=== PATIENT | male | born 1995 | race Caucasian/White ===

== ENCOUNTER 2019-06-21 22:48 | Emergency (ER) | payer BC ==
--- NOTE | 2019-06-22 00:31 | RADIOLOGY REPORT (SQ) ---
Left knee two view on 06/22/2019 at 12:12 AM CLINICAL INDICATION: Lateral knee pain after fall COMPARISON: None FINDINGS: No joint effusion is noted. There are no fractures. Visualized joints are well aligned. No bony abnormality is noted. IMPRESSION: No acute abnormality.
--- NOTE | 2019-06-22 03:22 | ER Document Report ---
ED Fall - General Chief Complaint: Fall Stated Complaint: FALL,LEFT KNEE PAIN Time Seen by Provider: 06/22/19 02:46 Mode of Arrival: Ambulatory Information source: Patient TRAVEL OUTSIDE OF THE [place] IN LAST 30 DAYS: No - HPI Notes: Patient states that he hit his knee on a trailer approximate 3 days ago. It was the left knee. He states he continues to have pain intermittently in the left knee so he felt he should come to the emergency department for evaluation. He does not know of anything that makes the pain better or worse. The pain does occur randomly. He states it is moderate when it comes and lasts several minutes at a time. It does radiate down the left leg. He denies any previous injuries to this leg. He denies any other injuries 3 days ago. The pain is sharp. - Related data Allergies/Adverse Reactions: No Known Allergies Allergy (Verified 11/13/13 00:24) Past Medical History - General Information source: Patient - Social History Smoking Status: Current Every Day Smoker Chew tobacco use (# tins/day): Yes Frequency of alcohol use: None Drug Abuse: None Family History: None Patient has suicidal ideation: No Patient has homicidal ideation: No GI Medical History: Reports: Hx Gastritis Psychiatric Medical History: Reports: Hx Anxiety - Immunizations Immunizations up to date: Yes Hx Diphtheria, Pertussis, Tetanus Vaccination: Yes Review of Systems - Review of Systems Constitutional: denies: Chills, Fever Cardiovascular: denies: Chest pain, Palpitations Respiratory: denies: Cough, Short of breath -: Yes All other systems reviewed and negative Physical Exam - Vital signs Vitals: Temp Pulse Resp BP Pulse Ox 98.5 F 78 16 158/87 H 97 06/21/19 22:54 06/21/19 22:54 06/21/19 22:54 06/21/19 22:54 06/21/19 22:54 Interpretation: Hypertensive - General General appearance: Appears well, Alert - HEENT Head: Normocephalic, Atraumatic Eyes: Normal Pupils: PERRL - Respiratory Respiratory status: No respiratory distress Chest status: Nontender Breath sounds: Normal Chest palpation: Normal - Cardiovascular Rhythm: Regular Heart sounds: Normal auscultation Murmur: No - Abdominal Inspection: Normal Distension: No distension Bowel sounds: Normal Tenderness: Nontender Organomegaly: No organomegaly - Back Back: Normal, Nontender - Extremities General upper extremity: Normal inspection, Nontender, Normal color, Normal ROM, Normal temperature General lower extremity: Normal inspection, Tender - Patient is tender on the lateral aspect of the left knee joint. This tenderness is just distal to the midline of the joint., Normal color, Normal ROM, Normal temperature, Normal weight bearing. No: Nubia's sign - Neurological Neuro grossly intact: Yes Cognition: Normal Orientation: AAOx4 [place] Coma Scale Eye Opening: Spontaneous [place] Coma Scale Verbal: Oriented [place] Coma Scale Motor: Obeys Commands [place] Coma Scale Total: 15 Speech: Normal Motor strength normal: LUE, RUE, LLE, RLE Sensory: Normal - Psychological Associated symptoms: Normal affect, Normal mood - Skin Skin Temperature: Warm Skin Moisture: Dry Skin Color: Normal Course - Vital Signs Vital signs: Temp Pulse Resp BP Pulse Ox 98.5 F 78 16 158/87 H 97 06/21/19 22:54 06/21/19 22:54 06/21/19 22:54 06/21/19 22:54 06/21/19 22:54 - Diagnostic Test Radiology reviewed: Image reviewed, Reports reviewed Discharge - Discharge Clinical Impression: Sprain of unspecified site of left knee, initial encounter Condition: Stable Disposition: HOME, SELF-CARE Instructions: Ice & Elevation ([facility]), Sprained Knee ([facility]) Additional Instructions: Please call Dr. Mccann as soon as possible to arrange follow-up Prescriptions: Tramadol HCl [Ultram] 50 mg PO Q6 PRN 3 Days #12 tablet PRN Reason: Forms: Return to Work Referrals: SONNY MCCANN JR, [ACTIVE PROVISIONAL STAFF] - Follow up in 1 week
[2019-06-22 03:43] VITALS: BP 144/81
== END 2019-06-22 03:41 | disposition home or self-care (01) ==
LOC: ER 22:48
DX: S83.92XA Sprain of unspecified site of left knee, initial encounter (principal); M25.562 Pain in left knee; M79.605 Pain in left leg; W19.XXXA Unspecified fall, initial encounter; F17.200 Nicotine dependence, unspecified, uncomplicated
CPT/HCPCS: 99283

== ENCOUNTER 2020-05-13 18:30 | Emergency (ER) | payer BC ==
[2020-05-13 18:36] VITALS: BP 144/82
[2020-05-13] MEDS ORDERED: IPRATROPIUM/ALBUTEROL 0.5-2.5 MG/3 ML AMPUL NEB ONE (18:45)
[2020-05-13] MEDS ORDERED: PREDNISONE 20 MG TABLET PO ONE (18:45)
--- NOTE | 2020-05-13 18:47 | ER Document Report ---
ED Medical Screen (RME) - General Chief Complaint: Abdominal Pain Stated Complaint: LEFT SIDE PAIN / COUGH Time Seen by Provider: 05/13/20 18:40 Mode of Arrival: Ambulatory Information source: Patient Notes: Patient presents with a cough for the past 3 weeks and left lateral side pain. Patient denies any fever, nausea vomiting or diarrhea. Patient denies any urinary symptoms. Patient states that he did get a rapid Covid test sometime last week and it was negative. Patient denies any underlying respiratory conditions. Patient does admit to smoking marijuana. Patient with diffuse whe ezing bilaterally. I have greeted and performed a rapid initial assessment of this patient. A comprehensive ED assessment and evaluation of the patient, analysis of test results and completion of the medical decision making process will be conducted by additional ED providers. TRAVEL OUTSIDE OF THE [place] IN LAST 30 DAYS: No - Related Data Allergies/Adverse Reactions: No Known Allergies Allergy (Verified 05/13/20 18:45) Past Medical History GI Medical History: Reports: Hx Gastritis Psychiatric Medical History: Reports: Hx Anxiety - Immunizations Immunizations up to date: Yes Hx Diphtheria, Pertussis, Tetanus Vaccination: Yes Physical Exam - Vital signs Vitals: Temp Pulse Resp BP Pulse Ox 98.7 F 100 18 144/82 H 97 05/13/20 18:36 05/13/20 18:36 05/13/20 18:36 05/13/20 18:36 05/13/20 18:36 - Respiratory Respiratory status: No respiratory distress Chest status: Pain with cough Breath sounds: Nonproductive cough, Wheezing Course - Vital Signs Vital signs: Temp Pulse Resp BP Pulse Ox 98.7 F 100 18 144/82 H 97 05/13/20 18:36 05/13/20 18:36 05/13/20 18:36 05/13/20 18:36 05/13/20 18:36
[2020-05-13] MEDS: ALBUTEROL SULFATE 0.083% NEB 2.5 MG/3 ML AMPUL NEB SCH ×2 (19:12→20:17)
--- NOTE | 2020-05-13 19:26 | RADIOLOGY REPORT (SQ) ---
EXAM DESCRIPTION: CHEST SINGLE VIEW IMAGES COMPLETED DATE/TIME: 05/13/2020 6:10 pm REASON FOR STUDY: cough, L side pain COMPARISON: 06/15/2016 EXAM PARAMETERS: NUMBER OF VIEWS: One view. TECHNIQUE: Single frontal radiographic view of the chest acquired. RADIATION DOSE: NA LIMITATIONS: None. FINDINGS: LUNGS AND PLEURA: No opacities, masses or pneumothorax. No pleural effusion. MEDIASTINUM AND HILAR STRUCTURES: No masses. Contour normal. HEART AND VASCULAR STRUCTURES: Heart normal in size. Normal vasculature. BONES: No acute findings. HARDWARE: None in the chest. OTHER: No other significant finding. IMPRESSION: NO ACUTE RADIOGRAPHIC FINDING IN THE CHEST. TECHNICAL DOCUMENTATION: JOB ID: [id number] [employer]- All Rights Reserved Reading location - IP/workstation name: [email or web address]
[2020-05-13] MEDS ORDERED: KETOROLAC TROMETHAMINE INJ/PF 30 MG/1 ML SDV IV ONE (19:32)
[2020-05-13] MEDS ORDERED: NORMAL SALINE 1000 ML 1,000 ML IV ONE (19:32)
--- NOTE | 2020-05-13 19:39 | ER Document Report ---
ED General - General Chief Complaint: Cough Stated Complaint: LEFT SIDE PAIN / COUGH Time Seen by Provider: 05/13/20 18:40 Primary Care Provider: CLIVE GARCIA PA-C [Primary Care Provider] - Follow up as needed Mode of Arrival: Ambulatory Notes: Patient presents to the ER for evaluation of coarse cough productive of green sputum with chest congestion times approximately 3 weeks. He denies shortness of breath. He admits to left lower rib pain that has gradually worsened throughout the course of the illness. He states pain is made worse with coughing and deep breathing. Denies fever. He denies body aches. He denies chills. Nursing notes reviewed and past medical, social, and family histories reviewed and validated. TRAVEL OUTSIDE OF THE [place] IN LAST 30 DAYS: No - Related Data Allergies/Adverse Reactions: No Known Allergies Allergy (Verified 05/13/20 19:00) Past Medical History - General Information source: Patient - Social History Smoking Status: Never Smoker Chew tobacco use (# tins/day): Yes Smoking Education Provided: Yes Frequency of alcohol use: None Drug Abuse: Marijuana Lives with: Family Family History: Reviewed & Not Pertinent Patient has suicidal ideation: No Patient has homicidal ideation: No - Past Medical History Cardiac Medical History: Reports: None Pulmonary Medical History: Reports: None EENT Medical History: Reports: None Neurological Medical History: Reports: None Endocrine Medical History: Reports: None Renal/ Medical History: Reports: None Malignancy Medical History: Reports None GI Medical History: Reports: Hx Gastritis Musculoskeletal Medical History: Reports None Skin Medical History: Reports None Psychiatric Medical History: Reports: Hx Anxiety Traumatic Medical History: Reports: None Infectious Medical History: Reports: None Past Surgical History: Reports: None - Immunizations Immunizations up to date: Yes Hx Diphtheria, Pertussis, Tetanus Vaccination: Yes Review of Systems - Review of Systems Notes: Constitutional: Negative for fever. HENT: Negative for sore throat. Eyes: Negative for visual changes. Cardiovascular: Negative for chest pain. Respiratory: Negative for shortness of breath. Positive for cough. Gastrointestinal: Negative for abdominal pain, vomiting or diarrhea. Genitourinary: Negative for dysuria. Musculoskeletal: Negative for back pain. Skin: Negative for rash. Neurological: Negative for headaches, weakness or numbness. 10 point ROS negative except as marked above and in HPI. Physical Exam - Vital signs Vitals: Temp Pulse Resp BP Pulse Ox 98.7 F 100 18 144/82 H 97 05/13/20 18:36 05/13/20 18:36 05/13/20 18:36 05/13/20 18:36 05/13/20 18:36 - Notes Notes: CONSTITUTIONAL: Well appearing. No acute distress. SKIN: Warm, dry, and intact without rash EYES: Extraocular movements are grossly intact, clear conjunctiva HENT: Normocephalic, atraumatic, moist mucus membranes NECK: No obvious swelling, normal range of motion PULMONARY: Normal chest rise and fall. Rales noted bilaterally. No respiratory distress or stridor there is tenderness to the lower lateral aspect of the left ribs. CARDIOVASCULAR: Regular rate. No murmurs, rubs, gallops. Distal extremities are warm and well perfused. ABDOMINAL: Soft, nontender NEUROLOGIC: Normal speech, moves all extremities. Cranial nerves are within normal limits. MUSCULOSKELETAL: No gross deformities, atraumatic PSYCHIATRIC: Normal mood and affect Course - Re-evaluation Re-evalutation: 05/13/20 20:22 The patient is declining further treatment and evaluation. He has refused his blood work and Toradol. He states he is just here to find out if he has pneumonia or bronchitis. He states he would like to be treated with outpatient medication and discharged. Discussed with patient: all known results, diagnosis, treatment plan, and need for follow-up. Return to the emergency department warnings were given. All questions and concerns were addressed. The plan is agreed with and understood. Patient is stable and ready for discharge. - Vital Signs Vital signs: Temp Pulse Resp BP Pulse Ox 98.7 F 100 18 144/82 H 97 05/13/20 18:46 05/13/20 18:36 05/13/20 18:36 05/13/20 18:36 05/13/20 18:36 Discharge - Discharge Clinical Impression: Acute upper respiratory infection, Pleuritic pain Condition: Stable Disposition: HOME, SELF-CARE Instructions: COVID-19 Guidance for Persons Under Investigation, Bronchitis ([facility]) Prescriptions: Albuterol Sulfate [Proventil Hfa] 2 puff IH Q6HP PRN #1 inhaler PRN Reason: For Wheezing Prednisone 10 mg PO DAILY 6 Days #1 tab.ds.pk Azithromycin [Zithromax 250 mg Tablet] 250 mg PO ASDIR PRN #6 tablet PRN Reason: Referrals: CLIVE GARCIA PA-C [Primary Care Provider] - Follow up as needed
== END 2020-05-13 21:00 | disposition home or self-care (01) ==
LOC: ER 18:30
DX: J06.9 Acute upper respiratory infection, unspecified (principal); R05 Cough; R09.89 Other specified symptoms and signs involving the circulatory and respiratory systems; R07.81 Pleurodynia; F12.10 Cannabis abuse, uncomplicated
CPT/HCPCS: 94640; 99284; 71045; J7512; J7613